=== PATIENT | male | born 1995 | race Caucasian/White ===

== ENCOUNTER 2017-02-02 17:22 | Emergency (ER) | payer BC ==
[~2017-02-02] VITALS: Ht 170.2 cm; Wt 94.2 kg
[2017-02-02 17:34] VITALS: TEMP 36.5; Ht 170.2 cm; Wt 94.2 kg
[2017-02-02] MEDS ORDERED: ROSU5TAB PO (18:00)
[2017-02-02] MEDS ORDERED: CHLO1TAB38 PO (18:02)
[2017-02-02] MEDS ORDERED: CHOL2000 PO (18:03)
[2017-02-02] MEDS ORDERED: ZINC1CAP PO (18:04)
[2017-02-02] MEDS ORDERED: OMEG10007 PO (18:05)
[2017-02-02] MEDS ORDERED: MILK150C PO (18:06)
[2017-02-02] MEDS ORDERED: SODIUM CHLORIDE 0.9% 1000ML 1,000 ML IV STA (18:07)
[2017-02-02] MEDS ORDERED: ONDANSETRON INJ 2 MG/ML 2 ML VIAL IV STA (18:07)
[2017-02-02] MEDS ORDERED: FAMOTIDINE 20MG/5ML IV PUSH IV STA (18:07)
--- NOTE | 2017-02-02 18:29 | EMERGENCY ROOM VISIT NOTE ---
History Report prepared by Vonda: David Laguna Under the Supervision of: Dr. Katya Jones D.O. First contact with patient: 17:47 Chief Complaint: GI ASSESSMENT Stated Complaint: INDIGESTION, VOMITTING, HICCUPS,TROUBLE BOWELS Nursing Triage Summary: Pt presents with nausea, belching, "odd colored stool", diffuse abd pain, hiccups until vomiting. Pt states, "Sometimes my vomit is really dark, like black. My stomach gets really loud, like it's eating itself. I've had the on/ off hiccpus since Oct. I had lab work and my ALT was high, but I don't even drink anymore." History of Present Illness The patient is a 21 year old male who presents to the Emergency Room with complaints of intermittent indigestion starting a few months ago. The patient states he eats normally throughout the day and will get bloated by the early afternoon. He reports he develops the hiccups, and they will only go away if he forces himself to vomit. The patient notes the color of his vomit changes from brown to black to victor. He states he will try to drink water before vomiting, and he can feel it at the top of his stomach. The patient reports he was evaluated by his PCP about 1.5 months ago and told how to stop the hiccups. He notes he had an episode where he tried to hold his breath, and his diaphragm froze to the point he could not exhale for 35 seconds. The patient states his hiccups would go away afterwards though. He reports he tried switching to almond milk, but it has not helped. The patient notes he has not had GERD before , but his dad takes Nexium for GERD. He denies changing his medication. The patient states he has not been able to defecate as often as he used to be, but that is because he has decreased his oral intake. Source of History: patient Onset: a few months ago Position: other (global) Quality: other (indigestion) Timing: intermittent Modifying Factors (Worsening): eating Associated Symptoms: + vomiting (self induced) Note: Associated symptoms: hiccups, decreased bowel movements Denies: history of GERD, changes in medication Review of Systems See HPI for pertinent positives & negatives. A total of 10 systems reviewed and were otherwise negative. Past Medical & Surgical Medical Problems: (1) Acc-Cutting Instrum Nec (2) Encounter for removal of sutures (3) Laceration (4) No Known Active Medical Problems (5) Suicide attempt by hanging Family History Hypertension Kidney disease Social History Smoking Status: Current Every Day Smoker Alcohol Use: occasionally Drug Use: cocaine Current/Historical Medications Scheduled Cholecalciferol (Vitamin D3), 4,000 UNITS PO DAILY Fish Oil ([place]-3), 1 CAP PO DAILY Milk Thistle (Silybum [place] (Milk Thistle), Unknown Dose PO DAILY Pantoprazole (Protonix), 1 TAB PO DAILY Rosuvastatin Calcium (Crestor), 10 MG PO DAILY Zinc Sulfate (Zinc Sulfate), Unknown Dose PO DAILY Scheduled PRN Chlorpromazine Hcl (Thorazine), 10 MG PO BID PRN for HICCOUGHS Allergies Coded Allergies: Watermelon (Verified Allergy, Intermediate, ITCHY THROAT, 07/03/15) Uncoded Allergies: STRAWBERRIES (Allergy, Intermediate, ITCHY THROAT, 02/02/17) Physical Exam Vital Signs Date Time Temp Pulse Resp B/P (MAP) Pulse Ox O2 Delivery O2 Flow Rate FiO2 02/02/17 19:33 76 16 152/71 99 Room Air 02/02/17 19:16 76 02/02/17 17:34 36.5 76 18 178/97 96 Room Air Physical Exam GENERAL: alert, well appearing, well nourished, no distress, non-toxic EYE EXAM: normal conjunctiva, PERRL and EOM's grossly intact OROPHARYNX: no exudate, no erythema, lips, buccal mucosa, and tongue normal and mucous membranes are moist NECK: supple, no nuchal rigidity, no adenopathy, non-tender LUNGS: Clear to auscultation. Normal chest wall mechanics HEART: no murmurs, S1 normal and S2 normal ABDOMEN: abdomen soft, non-tender, normo-active bowel sounds, no masses, no rebound or guarding. BACK: Back is symmetrical on inspection and there is no deformity, no midline tenderness, no CVA tenderness. SKIN: no rashes and no bruising UPPER EXTREMITIES: upper extremities are grossly normal. LOWER EXTREMITIES: No pitting edema. NEURO EXAM: Normal sensorium, cranial nerves II-XII grossly intact, normal speech, no gross weakness of arms, no gross weakness of legs. Medical Decision & Procedures ER Provider Diagnostic Interpretation: Radiology results have been interpreted by the radiologist and reviewed by me. ABDOMEN 2VIEW W/PA CHEST RTN CLINICAL HISTORY: vomiting nausea COMPARISON STUDY: 01/04/2015 FINDINGS: Moderate stable cardiomegaly. Lungs are clear. Diaphragms smooth. Costophrenic and sharp. Bowel pattern is nonobstructive. IMPRESSION: No acute process. The above report was generated using voice recognition software. It may contain grammatical, syntax or spelling errors. Electronically signed by: Camilo Salmeron M.D. 02/02/2017 6:51 PM Dictated Date/Time: 02/02/2017 6:50 PM Laboratory Results 02/02/17 18:20 Red Blood Count 5.24, Mean Corpuscular Volume 86.1, Mean Corpuscular Hemoglobin 28.4, Mean Corpuscular Hemoglobin Concent 33.0, Mean Platelet Volume 10.7, Neutrophils (%) (Auto) 65.3, Lymphocytes (%) (Auto) 24.3, Monocytes (%) (Auto) 7.2, Eosinophils (%) (Auto) 2.2, Basophils (%) (Auto) 0.4, Neutrophils # (Auto) 7.38, Lymphocytes # (Auto) 2.75, Monocytes # (Auto) 0.81, Eosinophils # (Auto) 0.25, Basophils # (Auto) 0.04 02/02/17 18:20 Test 02/02/17 18:20 White Blood Count 11.30 K/uL (4.8-10.8) Red Blood Count 5.24 M/uL (4.7-6.1) Hemoglobin 14.9 g/dL (14.0-18.0) Hematocrit 45.1 % (42-52) Mean Corpuscular Volume 86.1 fL (80-100) Mean Corpuscular Hemoglobin 28.4 pg (25-34) Mean Corpuscular Hemoglobin Concent 33.0 g/dl (32-36) Platelet Count 260 K/uL (130-400) Mean Platelet Volume 10.7 fL (7.4-10.4) Neutrophils (%) (Auto) 65.3 % Lymphocytes (%) (Auto) 24.3 % Monocytes (%) (Auto) 7.2 % Eosinophils (%) (Auto) 2.2 % Basophils (%) (Auto) 0.4 % Neutrophils # (Auto) 7.38 K/uL (1.4-6.5) Lymphocytes # (Auto) 2.75 K/uL (1.2-3.4) Monocytes # (Auto) 0.81 K/uL (0.11-0.59) Eosinophils # (Auto) 0.25 K/uL (0-0.5) Basophils # (Auto) 0.04 K/uL (0-0.2) RDW Standard Deviation 50.0 fL (36.4-46.3) RDW Coefficient of Variation 15.9 % (11.5-14.5) Immature Granulocyte % (Auto) 0.6 % Immature Granulocyte # (Auto) 0.07 K/uL (0.00-0.02) Prothrombin Time 12.4 SECONDS (9.0-12.0) Prothromb Time International Ratio 1.2 (0.9-1.1) Anion Gap 7.0 mmol/L (3-11) Est Creatinine Clear Calc Drug Dose 95.3 ml/min Estimated GFR () 87.3 Estimated GFR (Non- 75.3 BUN/Creatinine Ratio 12.3 (10-20) Lactic Acid Level 1.7 mmol/L (0.4-2.0) Calcium Level 9.1 mg/dl (8.5-10.1) Total Bilirubin 1.1 mg/dl (0.2-1) Aspartate Amino Transf (AST/SGOT) 39 U/L (15-37) Alanine Aminotransferase (ALT/SGPT) 50 U/L (12-78) Alkaline Phosphatase 36 U/L (45-117) Troponin I 0.034 ng/ml (0-0.045) Total Protein 6.8 gm/dl (6.4-8.2) Albumin 3.2 gm/dl (3.4-5.0) Globulin 3.6 gm/dl (2.5-4.0) Albumin/Globulin Ratio 0.9 (0.9-2) Lipase 262 U/L (73-393) Laboratory results per my review. Medications Administered Medications (Trade) Dose Ordered Sig/King Route Start Time Stop Time Status Last Admin Dose Admin Famotidine (Pepcid 20mg Iv Push) 20 mg NOW STAT IV 02/02/17 18:07 02/02/17 18:10 DC 02/02/17 18:27 20 MG Ondansetron HCl (Zofran Inj) 4 mg NOW STAT IV 02/02/17 18:07 02/02/17 18:10 DC 02/02/17 18:27 4 MG Sodium Chloride 1,000 ml @ 999 mls/hr Q1H1M STAT IV 02/02/17 18:07 02/02/17 19:07 DC 02/02/17 18:27 999 MLS/HR ECG Indication: vomiting Rate (beats per minute): 75 Rhythm: normal sinus Findings: no acute ischemic change, other (Normal interval, normal axis) ED Course 1757: The patient was evaluated in room B11B. A complete history and physical exam was performed. 1806: Ordered Sodium Chloride 1000 ml @ 999 mls/hr IV, Ondansetron HCl 4mg IV, Famotidine 20mg IV 1911: I reevaluated the patient. He feels better. I updated him of his current exam findings. The patient is going to attempt a PO challenge. 2011: Upon reevaluation, the patient is feeling better and passed the PO challenge. I discussed the findings and the treatment plan with the patient. He verbalizes agreement and understanding. The patient was discharged home. Medical Decision Differential diagnoses includes but is not limited to gastritis, peptic ulcer disease, GERD, gallbladder disease, pancreatitis, small bowel obstruction, acute coronary syndrome, pericarditis, ischemic bowel, irritable bowel disease, irritable bowel syndrome, appendicitis, diverticulitis, malignancy, hernia, urinary tract infection, torsion, perforation, trauma, infectious. Patient well-appearing here despite complaints, vital signs stable. Patient's description of abdominal bloating has led him to self induce vomiting which is likely contributing to worsening reflux symptoms and likely gastritis. Discussed acidity in patient's diet. Patient's abdomen tonight soft and nontender. Patient concern of possible blood in his vomit given frequency of vomiting. Patient has been taking omeprazole daily. Patient improved and was able to tolerate by mouth without recurrent vomiting or abdominal pain. Patient 's H&H stable. I do not suspect persistent occult GI bleed. Discussed with patient and avoidance of acetaminophen diet, changing to a different acid reducing medication, close follow-up with GI, symptoms to watch and return for, he verbalized understanding was agreeable with plan. I do not suspect Sugar- Johnson tear, Boerhaave's, perforation, mesenteric ischemia, bowel obstruction, biliary colic, bacteremia/sepsis, or vascular etiology. Medication Reconcilliation Current Medication List: was personally reviewed by me Blood Pressure Screening Patient's blood pressure: Elevated blood pressure Blood pressure disposition: Elevated BP felt to be situational Impression Primary Impression: Vomiting Additional Impressions: GI bleed Gastritis Scribe Attestation The scribe's documentation has been prepared under my direction and personally reviewed by me in its entirety. I confirm that the note above accurately reflects all work, treatment, procedures, and medical decision making performed by me. Departure Information Dispostion Home / Self-Care Prescriptions Pantoprazole (PROTONIX) 40 Mg Tab 1 TAB PO DAILY for 30 Days, #30 TAB Prov: Katya Jones, DO 02/02/17 Referrals No Doctor, Assigned (PCP) Forms HOME CARE DOCUMENTATION FORM, IMPORTANT VISIT INFORMATION Patient Instructions My [facility] Additional Instructions Please be cautious regarding your diet over the next several weeks. Please begin taking the stomach medication as prescribed. Please avoid foods in your diet which are more acidic and could contribute to your stomach irritation, this includes alcohol, coffee, soda, tomato-based products, and citrus fruits. Please call and follow up with the GI specialist. They may suggest additional testing or procedures. If you develop recurrent vomiting, abdominal pain, fevers, develop dizziness, trouble breathing, noticed black or bloody stools, noticed blood in your vomiting again, or you've any other new concerns, please return the emergency room. Problem Qualifiers Primary Impression: Vomiting Vomiting type: unspecified Vomiting Intractability: non-intractable Nausea presence: with nausea Qualified Codes: R11.2 - Nausea with vomiting, unspecified Additional Impressions: GI bleed GI bleed type/associated pathology: gastrointestinal hemorrhage with hematemesis Qualified Codes: K92.0 - Hematemesis Gastritis Gastritis type: unspecified gastritis Chronicity: acute Gastritis bleeding : with bleeding Qualified Codes: K29.01 - Acute gastritis with bleeding
[2017-02-02 18:33] LABS: BASO % 0.4 %; BASO ABS # 0.04 K/uL (0-0.2); COMPLETE YES; EOS % 2.2 %; HEMATOCRIT 45.1 % (42-52); IG% 0.6 %; LYMPH % 24.3 %; LYMPH ABS # 2.75 K/uL (1.2-3.4); MEAN CELL VOLUME 86.1 fL (80-100); MEAN CORPUSCULAR HEMOGLOBIN 28.4 pg (25-34); MEAN PLATELET VOLUME 10.7 fL (7.4-10.4); MONO % 7.2 %; NEUT % 65.3 %; PLATELET COUNT 260 K/uL (130-400); RED BLOOD COUNT 5.24 M/uL (4.7-6.1)
[2017-02-02 18:40] LABS: INR 1.2 (0.9-1.1); PROTHROMBIN TIME (PATIENT) 12.4 SECONDS (9.0-12.0)
[2017-02-02 18:51] LABS: BUN/CREATININE RATIO 12.3 (10-20); CALCIUM 9.1 mg/dl (8.5-10.1); CREATININE 1.33 mg/dl (0.60-1.40); POTASSIUM 3.9 mmol/L (3.5-5.1)
--- NOTE | 2017-02-02 18:52 | DIAGNOSTIC IMAGING REPORT ---
ABDOMEN 2VIEW W/PA CHEST RTN CLINICAL HISTORY: vomiting nausea COMPARISON STUDY: 01/04/2015 FINDINGS: Moderate stable cardiomegaly. Lungs are clear. Diaphragms smooth. Costophrenic and sharp. Bowel pattern is nonobstructive. IMPRESSION: No acute process. The above report was generated using voice recognition software. It may contain grammatical, syntax or spelling errors. Electronically signed by: Camilo Salmeron M.D. 02/02/2017 6:51 PM Dictated Date/Time: 02/02/2017 6:50 PM
[2017-02-02 18:56] LABS: ALB/GLOB RATIO 0.9 (0.9-2)
[2017-02-02 19:33] VITALS: BP 152/71; PULSE 76; O2SAT 99
[2017-02-02] MEDS ORDERED: PANT1TAB48 PO (20:15)
== END 2017-02-02 20:35 | disposition home or self-care (01) ==
LOC: C.EDB 17:24
DX: R11.2 Nausea with vomiting, unspecified (principal); K29.01 Acute gastritis with bleeding; R03.0 Elevated blood-pressure reading, without diagnosis of hypertension; F17.200 Nicotine dependence, unspecified, uncomplicated; F14.90 Cocaine use, unspecified, uncomplicated; Z83.79 Family history of other diseases of the digestive system; Z82.49 Family history of ischemic heart disease and other diseases of the circulatory system; Z84.1 Family history of disorders of kidney and ureter